=== PATIENT | female | born 1965 | race Caucasian/White ===

== ENCOUNTER 2022-05-18 13:03 | Outpatient (CLI) | payer MEDICAID, SELFPAY ==
--- NOTE | 2022-05-18 13:00 | CT_ITS ---
Final Report Patient: NETO [facility] Facility:?[facility] Patient ID:?[id number] Site Patient ID:?[id number]. Site :?[id number] Study:?CT Chest/Abd/Pelvis 79cc Isovue 370-05/18/2022 2:33:54 PM Ordering Physician:Johnny Barber Final Report: INDICATION: Moderate string of renal cell carcinoma. TECHNIQUE: CT chest, abdomen and pelvis acquired with 79 cc Isovue 370 IV and oral contrast. COMPARISON: CT chest 10/14/[address] abdomen 02/03/2019. FINDINGS: CHEST Lungs and pleura: Minimal peripheral subpleural scarring from previous cover the infection. 3 mm pulmonary nodule in the lingula (series 3, image 47). 6 mm pulmonary nodule along left major fissure. 5 mm granuloma in the right lower lobe. No bronchial wall thickening or bronchiectasis. Heart and vasculature: Coronary artery atherosclerosis. Heart size is normal. Thoracic aorta and pulmonary artery are normal in caliber. Lymph node/mediastinum: Improved but residual prominent mediastinal and hilar lymph nodes.No mediastinal, hilar, or axillary adenopathy. Chest wall: Normal. Thyroid: Stable left thyroid nodule. Bones: No suspicious bone lesions. ABDOMEN AND PELVIS: Liver: Diffuse fatty infiltration with focal fatty infiltration along the falciform ligament. No focal liver lesion. Gallbladder and bile ducts: Gallbladder is surgically absent. No biliary ductal dilation. Pancreas: Unremarkable. Spleen: Normal in caliber. No masses. Adrenal glands: Unremarkable. No masses. Kidneys: Status post left nephrectomy. Right kidney is normal. No solid mass, stone, or hydronephrosis. GI tract: Mild colonic diverticulosis. Normal in caliber and appearance. No sign of mass or inflammation. Vasculature: Aortoiliac atherosclerosis. No aneurysm. Mesenteric arteries are patent. Lymph nodes: No lymphadenopathy. Omentum/peritoneum/retroperitoneum/abdominal wall: No masses or infiltration. No free air or significant free fluid. Pelvic organs: Uterus is surgically absent. Bones: No suspicious bone lesions. IMPRESSION: Left nephrectomy. No evidence of metastatic disease in the chest, abdomen, or pelvis. Please note that all CT scans at this facility use dose modulation, iterative reconstruction, and/or weight-based dosing when appropriate to reduce radiation dose to as low as reasonably achievable. Dictated by Law Kirkland MD @ 05/18/2022 9:34:36 PM (Electronic Signature)
[2022-05-18 13:33] LABS: Estimated Glomerular Filt Rate 65 ml/min
== END 2022-05-18 13:04 | disposition home or self-care (01) ==
LOC: CT 13:04
PROVIDERS: PCP Family Medicine; Visit Provider Clinical Nurse Specialist
DX: C64.9 Malignant neoplasm of unspecified kidney, except renal pelvis (principal)
CPT/HCPCS: 36415; 71260; 74177; 82565; Q9967

== ENCOUNTER 2022-05-25 13:16 | Outpatient (RCR) | payer MEDICAID, SELFPAY | END 2022-11-21 23:59 | disposition home or self-care (01) | LOC: CCIC 13:16 | PROVIDERS: PCP Family Medicine; Visit Provider Nurse Practitioner Family | DX: C64.9 Malignant neoplasm of unspecified kidney, except renal pelvis (principal) | CPT/HCPCS: 99212; 99214; 99215 ==

== ENCOUNTER 2023-05-10 14:54 | Outpatient (CLI) | payer MEDICAID, SELFPAY | END 2023-05-10 14:55 | disposition home or self-care (01) | LOC: AMB 05-23 18:49 | PROVIDERS: PCP Family Medicine; Visit Provider Family Medicine | DX: R07.89 Other chest pain (principal) | CPT/HCPCS: A0998 ==

== ENCOUNTER 2023-05-24 09:51 | Outpatient (CLI) | payer MEDICAID, SELFPAY ==
--- NOTE | 2023-05-24 10:00 | CRLHL7_ITS ---
For Patients: As a result of the Century Cures Act, medical imaging exams and procedure reports are released immediately into your electronic medical record. You may view this report before your referring provider. If you have questions, please contact your health care provider. INDICATION: Follow-up kidney cancer TECHNIQUE: CT chest, abdomen and pelvis acquired with IV contrast. COMPARISON: CT 05/18/2022 FINDINGS: Left thyroid nodules. Chest: Cardiovascular structures: Heart size is normal. Thoracic aorta and main pulmonary artery are normal in caliber. Mediastinum and ruma: No mass or adenopathy. Lungs: Mild emphysema. Mild lingular right middle lobe atelectasis. 3 millimeter lingular nodule /42 is unchanged. Two adjacent nodules measuring up to 6 millimeters along the left major fissure on 43 is unchanged. Right lower lobe granuloma. Pleura and pericardium: No effusions. Chest wall and axilla: No mass or adenopathy. Abdomen and Pelvis: Liver: Unremarkable. Spleen: Unremarkable. Pancreas: Unremarkable. Gallbladder and bile ducts: Cholecystectomy. Kidneys: Left nephrectomy. Adrenal glands: Unremarkable. GI tract: Unremarkable. Appendix is normal. Vascular structures: Unremarkable. Lymph nodes: Unremarkable. Miscellaneous: Unremarkable. No free air or significant free fluid. Pelvic Organs: Unremarkable. Bones: Unremarkable for age. IMPRESSION: 1. No findings for metastatic disease in the chest abdomen or pelvis. A few small pulmonary nodules are unchanged no new nodules are seen. Please note that all CT scans at this facility use dose modulation, iterative reconstruction, and/or weight-based dosing when appropriate to reduce radiation dose to as low as reasonably achievable. Dictated by Yady Almanza MD @ 05/24/2023 7:37:44 PM (Electronically Signed)
[2023-05-24 10:22] LABS: Creatinine* 0.8 mg/dL (0.5-1.5); Estimated Glomerular Filt Rate 85 ml/min
== END 2023-05-24 09:52 | disposition home or self-care (01) ==
LOC: CT 09:53
PROVIDERS: PCP Family Medicine; Visit Provider Nurse Practitioner Family
DX: C64.9 Malignant neoplasm of unspecified kidney, except renal pelvis (principal); E04.1 Nontoxic single thyroid nodule
CPT/HCPCS: 36415; 71260; 74177; 82565; Q9967

== ENCOUNTER 2023-06-02 13:48 | Outpatient (RCR) | payer MEDICAID, SELFPAY ==
[2023-06-02 14:26] LABS: Albumin* 4.3 g/dL (3.3-5.0); Chloride* 103 mmol/L (96-114)
[2023-06-02 14:27] LABS: Potassium* 3.8 mmol/L (3.6-5.1); Sodium* 135 mmol/L (135-149)
[2023-06-02 14:29] LABS: Aspartate Amino Transferase* 25 U/L (12-35); Bilirubin Total* 0.4 mg/dL (0.1-1.5); Carbon Dioxide* 24 mmol/L (20-32); Creatinine* 0.8 mg/dL (0.5-1.5); Estimated Glomerular Filt Rate 85 ml/min; Total Protein* 7.5 g/dL (6.0-8.3)
[2023-06-02 14:30] LABS: Alanine Aminotransferase* 25 U/L (4-35); Alkaline Phosphatase* 114 U/L (40-150); Blood Urea Nitrogen* 13 mg/dL (7-30); Calcium* 9.1 mg/dL (8.4-10.6); Glucose* 215 mg/dL (60-115)
== END 2023-11-29 23:59 | disposition home or self-care (01) ==
LOC: CCIC 13:48
PROVIDERS: Nurse Practitioner Family; PCP Family Medicine; Visit Provider Internal Medicine Hematology & Oncology
DX: C64.9 Malignant neoplasm of unspecified kidney, except renal pelvis (principal)
CPT/HCPCS: 36415; 80053; 99212; 99214

== ENCOUNTER 2024-06-05 13:30 | Outpatient (RCR) | payer MEDICAID, SELFPAY ==
[2024-05-25 13:20] LABS: Basophils Absolute Auto 0.04 K/uL (0.00-0.30); Basophils Percent Auto 0.6 % (0.0-3.0); Eosinophils Absolute Auto 0.09 K/uL (0.00-0.50); Eosinophils Percent Auto 1.4 % (0.0-7.0); Hematocrit 47.2 % (33.0-51.0); Hemoglobin* 15.1 gm/dL (12.0-16.0); Immature Granulocytes Abs Auto 0.03 K/uL (0.00-0.30); Immature Granulocytes Pct Auto 0.5 %; Lymphocytes Absolute Auto 2.41 K/uL (0.90-2.90); Mean Corpuscular HGB Conc 32 gm/dL (32-36); Mean Corpuscular Hemoglobin 28 pg (26-34); Mean Corpuscular Volume 87 fL (80-100); Monocytes Percent Auto 5.4 % (0.0-11.0); Neutrophils Percent Auto 55.1 % (42.0-72.0); Platelet Count* 232 K/uL (140-440); RDW Coefficient of Variation % 13.4 % (11.5-15.5); Red Blood Count 5.43 m/uL (4.00-5.20); White Blood Count* 6.52 K/uL (4.50-11.00)
[2024-05-25 13:22] LABS: Slide Review Reflex No
[2024-05-25 13:23] LABS: Albumin* 4.6 g/dL (3.3-5.0); Chloride* 104 mmol/L (96-114)
[2024-05-25 13:24] LABS: Potassium* 4.3 mmol/L (3.6-5.1); Sodium* 134 mmol/L (135-149)
[2024-05-25 13:26] LABS: Alkaline Phosphatase* 147 U/L (40-150); Anion Gap 7 mEq/L (7-15); Aspartate Amino Transferase* 32 U/L (12-35); Bilirubin Total* 0.4 mg/dL (0.1-1.5); Blood Urea Nitrogen* 14 mg/dL (7-30); Carbon Dioxide* 23 mmol/L (20-32); Creatinine* 0.7 mg/dL (0.5-1.5); Estimated Glomerular Filt Rate 99 ml/min; Total Protein* 7.7 g/dL (6.0-8.3)
[2024-05-25 13:27] LABS: Alanine Aminotransferase* 47 U/L (4-35); Calcium* 9.6 mg/dL (8.4-10.6); Glucose* 271 mg/dL (60-115); Lactate Dehydrogenase* 177 U/L (120-246)
== END 2024-11-21 23:59 | disposition home or self-care (01) ==
LOC: CCIC 13:30
PROVIDERS: PCP Family Medicine; Visit Provider Internal Medicine Hematology & Oncology
DX: C64.9 Malignant neoplasm of unspecified kidney, except renal pelvis (principal)
CPT/HCPCS: 36415; 71260; 74177; 80053; 83615; 85025; 99213; 99214; G0463; Q9967